=== PATIENT | male | born 1950 | race Caucasian/White ===

== ENCOUNTER → 2017-03-23 | Outpatient (CLI) | payer OTHER ==
[~2017-03-23] MED LIST: ANTICRE6 PO; CIPR-255 PO; CIPR1TAB11 PO; CLR/5 PO; DUTA0.5C PO; MISC1CAP60 PO; MISCCAP63 PO; NITR-5 PO; NXM/40 PO; OXYBUTYNIN PO; OXYC-57 PO; PHEN-876 PO; PRLSR20 PO; PROBIOTIC PO; PROSTAVAN PO; TAMS0.4C38 PO
[2017-03-23 12:30] LABS: % FREE PSA 29.7 %; FREE PSA 2.25 ng/ml; PROSTATE SPECIFIC ANTIGEN 7.57 ng/ml (0.000-4.000)
== END | disposition home or self-care (01) ==
LOC: C.LAB1850 09:35
PROVIDERS: ATTEND Urology
DX: N40.1 Benign prostatic hyperplasia with lower urinary tract symptoms (principal)

== ENCOUNTER → 2017-05-25 | Outpatient (CLI) | payer OTHER ==
[2017-05-25 12:47] LABS: BASO % 0.6 %; BASO ABS # 0.05 K/uL (0-0.2); COMPLETE YES; HEMATOCRIT 50.4 % (42-52); IG% 0.2 %; LYMPH % 30.5 %; LYMPH ABS # 2.67 K/uL (1.2-3.4); MEAN CELL VOLUME 93.2 fL (80-100); MEAN CORPUSCULAR HEMOGLOBIN 32.7 pg (25-34); MEAN CORPUSCULAR HGB CONC 35.1 g/dl (32-36); MEAN PLATELET VOLUME 10.5 fL (7.4-10.4); MONO % 13.2 %; NEUT % 54.5 %; PLATELET COUNT 141 K/uL (130-400); RED BLOOD COUNT 5.41 M/uL (4.7-6.1); WHITE BLOOD COUNT 8.76 K/uL (4.8-10.8)
[2017-05-25 12:54] LABS: PROTHROMBIN TIME (PATIENT) 10.7 SECONDS (9.0-12.0)
[2017-05-25 13:20] LABS: ESTIMATED AVERAGE GLUCOSE 103 mg/dl; HA1C FLAG Normal (Normal)
[2017-05-25 13:59] LABS: ALT/SGPT 51 U/L (12-78); AST/SGOT 49 U/L (15-37); BLOOD UREA NITROGEN 15 mg/dl (7-18); BUN/CREATININE RATIO 14.6 (10-20); CALCIUM 9.8 mg/dl (8.5-10.1); CARBON DIOXIDE 25 mmol/L (21-32); CHLORIDE 105 mmol/L (98-107); CHOLESTEROL 208 mg/dl (0-200); CREATININE 0.99 mg/dl (0.60-1.40); GLUCOSE 103 mg/dl (70-99); POTASSIUM 3.9 mmol/L (3.5-5.1); SODIUM 139 mmol/L (136-145); TRIGLYCERIDES 171 mg/dl (0-150); URIC ACID 4.5 mg/dl (2.6-7.2); VERY LOW DENSITY LIPOPROT CALC 34 mg/dl
[2017-05-25 14:19] LABS: ALB/GLOB RATIO 0.8 (0.9-2); ALKALINE PHOSPHATASE 181 U/L (45-117); CHOLESTEROL/HDL RATIO 5.3; HDL CHOLESTEROL 39 mg/dl; LDL CHOLESTEROL CALCULATED 135 mg/dl
[2017-06-01 12:17] LABS: ANTI-CENTROMERE AB <1.0 NEG AI (<1.0 NEG); ANTI-SS-A <1.0 NEG AI (<1.0 NEG); ANTI-SS-B <1.0 NEG AI (<1.0 NEG); DNA ds CRITHIDIA NEGATIVE (NEGATIVE); LIVER FIBR APOLIPOPROTEIN A-1 140 mg/dL (94-176); LIVER FIBROS ALPHA-2-MACROGLOB 519 mg/dL (106-279); LIVER FIBROSIS GGT 243 U/L (3-70); MICROSOMAL AB <1 IU/ML (<9); NECROINFLAMMATION ACT GRADE A1-A2; NECROINFLAMMATION ACT SCORE 0.36; Sm Antibody <1.0 NEG AI (<1.0 NEG); URCREATININE 95.2 MG/DL (>/= 20)
== END | disposition home or self-care (01) ==
LOC: C.LABBFT 09:53
PROVIDERS: ATTEND Internal Medicine
DX: N40.1 Benign prostatic hyperplasia with lower urinary tract symptoms (principal); B19.20 Unspecified viral hepatitis C without hepatic coma; E78.5 Hyperlipidemia, unspecified

== ENCOUNTER → 2017-06-08 | Outpatient (CLI) | payer OTHER ==
[~2017-06-08] MED LIST changes: -ANTICRE6 PO; -CIPR1TAB11 PO; -DUTA0.5C PO; -NITR-5 PO; -OXYBUTYNIN PO; -OXYC-57 PO; -PHEN-876 PO; -PRLSR20 PO; -PROBIOTIC PO; -PROSTAVAN PO; -TAMS0.4C38 PO
[2017-06-11 03:53] LABS: HEPATITIS C VIRAL RNA(LOG) PCR 5.77 LOG IU/ML (<1.18)
== END | disposition home or self-care (01) ==
LOC: C.LAB1850 14:42
PROVIDERS: ATTEND Internal Medicine Infectious Disease
DX: B18.2 Chronic viral hepatitis C (principal)

== ENCOUNTER → 2017-06-08 | Outpatient (CLI) | payer OTHER ==
[2017-06-11 08:18] LABS: ALBUMIN % 63.46 %; ALPHA-2-GLOBULIN % 8.13 %; BETA GLOBULIN % 14.38 %; CREATININE UR 62 MG/DL (20-370); HEPATITIS C VIRAL RNA BY PCR 641000 IU/ML (<15); HEPATITIS C VIRAL RNA(LOG) PCR 5.81 LOG IU/ML (<1.18)
== END | disposition home or self-care (01) ==
LOC: C.LABBFT 12:14
PROVIDERS: ATTEND Internal Medicine
DX: R77.1 Abnormality of globulin (principal); B19.20 Unspecified viral hepatitis C without hepatic coma

== ENCOUNTER → 2017-06-15 | Outpatient (CLI) | payer OTHER | END | disposition home or self-care (01) | LOC: C.LAB1850 10:47 | PROVIDERS: ATTEND Internal Medicine | DX: R77.1 Abnormality of globulin (principal) ==

== ENCOUNTER → 2017-08-10 | Outpatient (CLI) | payer OTHER ==
[~2017-08-10] MED LIST changes: +PRLSR20 PO; +TAMS0.4C38 PO
[2017-08-10 09:55] LABS: BASO % 0.7 %; BASO ABS # 0.05 K/uL (0-0.2); COMPLETE YES; EOS % 2.6 %; IG% 0.3 %; LYMPH % 31.1 %; LYMPH ABS # 2.16 K/uL (1.2-3.4); MEAN CELL VOLUME 91.6 fL (80-100); MEAN CORPUSCULAR HEMOGLOBIN 32.9 pg (25-34); MEAN CORPUSCULAR HGB CONC 35.9 g/dl (32-36); MEAN PLATELET VOLUME 9.9 fL (7.4-10.4); MONO % 14.4 %; NEUT % 50.9 %; PLATELET COUNT 141 K/uL (130-400); RED BLOOD COUNT 5.02 M/uL (4.7-6.1); WHITE BLOOD COUNT 6.95 K/uL (4.8-10.8)
[2017-08-10 10:18] LABS: ALT/SGPT 21 U/L (12-78); BLOOD UREA NITROGEN 21 mg/dl (7-18); BUN/CREATININE RATIO 20.6 (10-20); CALCIUM 10.5 mg/dl (8.5-10.1); CARBON DIOXIDE 29 mmol/L (21-32); CHLORIDE 102 mmol/L (98-107); GLUCOSE 94 mg/dl (70-99); POTASSIUM 4.1 mmol/L (3.5-5.1); SODIUM 137 mmol/L (136-145)
[2017-08-10 10:21] LABS: ALB/GLOB RATIO 0.9 (0.9-2); ALKALINE PHOSPHATASE 126 U/L (45-117); AST/SGOT 20 U/L (15-37)
[2017-08-13 01:06] LABS: HEPATITIS C VIRAL RNA BY PCR <15 NOT DETECTED IU/ML (<15); HEPATITIS C VIRAL RNA(LOG) PCR <1.18 NOT DETECTED LOG IU/ML (<1.18)
== END | disposition home or self-care (01) ==
LOC: C.LAB1850 09:00
PROVIDERS: ATTEND Internal Medicine Infectious Disease
DX: B19.20 Unspecified viral hepatitis C without hepatic coma (principal)

== ENCOUNTER → 2017-08-31 | Outpatient (CLI) | payer OTHER ==
[~2017-08-31] MED LIST changes: -PRLSR20 PO; -TAMS0.4C38 PO
[2017-09-02 03:00] LABS: HEPATITIS C VIRAL RNA BY PCR <15 NOT DETECTED IU/ML (<15); HEPATITIS C VIRAL RNA(LOG) PCR <1.18 NOT DETECTED LOG IU/ML (<1.18)
== END | disposition home or self-care (01) ==
LOC: C.LAB1850 09:28
PROVIDERS: ATTEND Internal Medicine Infectious Disease
DX: B19.20 Unspecified viral hepatitis C without hepatic coma (principal)

== ENCOUNTER 2017-09-14 08:03 | Emergency (ER) | payer OTHER ==
[2017-09-14 08:05] VITALS: TEMP 36.5; Ht 177.8 cm
[2017-09-14] MEDS ORDERED: TAMS0.4C38 PO (08:26)
[2017-09-14] MEDS ORDERED: PRLSR20 PO (08:26)
[2017-09-14 09:22] LABS: URINE APPEARANCE CLEAR (CLEAR); URINE BILIRUBIN NEG (NEG); URINE COLOR YELLOW; URINE NITRITE NEG (NEG); URINE SPECIFIC GRAVITY 1.013 (1.000-1.030); UROBILINOGEN NEG (NEG)
[2017-09-14 09:25] LABS: MANUAL MICROSCOPIC REQUIRED? NO; REVIEW REQ? NO
[2017-09-14 09:44] VITALS: BP 133/87; PULSE 71; O2SAT 95
--- NOTE | 2017-09-14 13:14 | EMERGENCY ROOM VISIT NOTE ---
History First contact with patient: 08:11 Chief Complaint: UNABLE TO VOID Stated Complaint: UNABLE TO VOID Nursing Triage Summary: patient unable to void since 4 am. I have needed a michael in the past for similar issues History of Present Illness The patient is a 67 year old male who presents to the Emergency Room with complaints of suprapubic abdominal pain and inability to urinate for the past 4 hours. The patient has a history of enlarged prostate and does follow with urology locally. He has not had recent fever or chills. He has had episodes of intermittent urinary retention in the past. This feels similar to those episodes. He has not had fever or chills. He rates his discomfort a 7/10. Review of Systems More than 10 systems were reviewed and otherwise negative with the exception of history of present illness. Past Medical/Surgical History Medical Problems: (1) Calculus Of Kidney (2) Pneumonia (3) Unilat Inguinal Hernia Surgical Problems: (1) History of cholecystectomy Family History FH: heart disease FH: kidney disease Social History Smoking Status: Former Smoker Alcohol Use: none Drug Use: none Marital Status: Housing Status: lives with family Occupation Status: employed Current/Historical Medications Scheduled Misc Natural Products ([employer]), 1 CAP PO DAILY Omeprazole (Prilosec), 20 MG PO DAILY Tamsulosin Hcl (Flomax), 0.4 MG PO DAILY Physical Exam Vital Signs Date Time Temp Pulse Resp B/P (MAP) Pulse Ox O2 Delivery O2 Flow Rate FiO2 09/14/17 09:44 71 20 133/87 95 09/14/17 08:05 36.5 110 24 173/107 96 Room Air Physical Exam VITALS: Vitals are noted on the nurse's note and reviewed by myself. Vital signs stable. GENERAL: Well-developed, well-nourished, white male who is pacing in the emergency department room secondary to his discomfort. He is uncomfortable appearing but overall cooperative. HEART: Regular rate and rhythm without murmurs gallops or rubs. LUNGS: Clear to auscultation bilaterally without wheezes, rales or rhonchi. No retractions or accessory muscle use. ABDOMEN: Positive normal bowel sounds x 4. Soft with suprapubic tenderness. No CVA tenderness. No guarding or rebound tenderness. MUSCULOSKELETAL: No muscle atrophy, erythema, or edema noted. Full range of motion without joint tenderness in all extremities. Medical Decision & Procedures Laboratory Results Test 09/14/17 08:25 Urine Color YELLOW Urine Appearance CLEAR (CLEAR) Urine pH 5.0 (4.5-7.5) Urine Specific [place] 1.013 (1.000-1.030) Urine Protein NEG (NEG) Urine Glucose (UA) NEG (NEG) Urine Ketones NEG (NEG) Urine Occult Blood NEG (NEG) Urine Nitrite NEG (NEG) Urine Bilirubin NEG (NEG) Urine Urobilinogen NEG (NEG) Urine Leukocyte Esterase NEG (NEG) ED Course Physical exam and history were performed. Nursing notes, EMR, and Medication List were personally reviewed. Patient appears to have suprapubic tenderness and urinary retention symptoms for the past 4 hours. On examination the patient appears uncomfortable. A Michael catheter was placed by staff, and greater than 700 ML's of urine was drained over the course of about one hour. This essentially completely resolved the patient's discomfort. The urine is without obvious signs of infection, and the patient does not appear to need antibiotics unless his culture returns positive. Evidently the patient does follow with urology and has had intermittent symptoms of urinary retention in the past. We will leave the Michael in place until otherwise instructed by urology. The patient is to contact them later this morning to help arrange follow-up. The patient was pleased with this plan and voiced understanding. He rated his discomfort a 1/10 at the time of departure. The chart was completed utilizing [employer] Speech Voice Recognition Software. Grammatical errors, random word insertions, pronoun errors, and incomplete sentences are an occasional consequence of this system due to software limitations, ambient noise, and hardware issues. Any formal questions or concerns about the content, text, or information contained within the body of this dictation should be directly addressed to the provider for clarification. . Medical Decision Differential diagnosis: Etiologies such as renal colic, appendicitis, diverticulitis, mesenteric ischemia, aortic pathology, infections, inflammatory bowel disease, PUD, biliary pathology, UTI, as well as others were entertained. Medication Reconcilliation Current Medication List: was personally reviewed by me Blood Pressure Screening Blood pressure disposition: Elevated BP felt to be situational Impression Primary Impression: Urinary retention Departure Information Dispostion Home / Self-Care Condition GOOD Referrals Jitendra Moscoso MD Forms HOME CARE DOCUMENTATION FORM, IMPORTANT VISIT INFORMATION Patient Instructions My [facility] Additional Instructions You were seen and evaluated today on an emergency basis only. This is not a substitute for, or an effort to provide, complete comprehensive medical care. It is not possible to recognize and treat all injuries or illnesses in a single emergency department visit. For this reason it is recommended that you followup with urology, Dr. Moscoso' s office, by telephone in the morning to arrange appropriate follow-up. You are welcome to return to the emergency department anytime with new, worsening, or concerning symptoms.
== END 2017-09-14 09:40 | disposition home or self-care (01) ==
LOC: C.EDB 08:05
DX: R33.9 Retention of urine, unspecified (principal); Z87.01 Personal history of pneumonia (recurrent); Z87.442 Personal history of urinary calculi; Z90.49 Acquired absence of other specified parts of digestive tract; Z87.891 Personal history of nicotine dependence; N40.0 Benign prostatic hyperplasia without lower urinary tract symptoms; Z79.899 Other long term (current) drug therapy

== ENCOUNTER → 2017-10-16 | Outpatient (CLI) | payer OTHER ==
[~2017-10-16] MED LIST changes: -CIPR-255 PO; -CLR/5 PO; -MISC1CAP60 PO; -NXM/40 PO; +PRLSR20 PO; +TAMS0.4C38 PO
[2017-10-16 16:24] LABS: URINE APPEARANCE CLEAR (CLEAR); URINE BILIRUBIN NEG (NEG); URINE COLOR YELLOW; URINE EPITHELIAL CELL AUTO 0-5 /lpf (0-5); URINE NITRITE POS (NEG); URINE PH 5.5 (4.5-7.5); URINE SPECIFIC GRAVITY 1.018 (1.000-1.030); UROBILINOGEN NEG (NEG)
[2017-10-16 16:30] LABS: MANUAL MICROSCOPIC REQUIRED? NO; REVIEW REQ? YES
== END | disposition home or self-care (01) ==
LOC: C.LABSPEC 15:29
PROVIDERS: ATTEND Urology
DX: N40.1 Benign prostatic hyperplasia with lower urinary tract symptoms (principal)

== ENCOUNTER 2017-11-05 07:55 | Day surgery (SDC) | payer OTHER ==
--- NOTE | 2017-10-20 09:28 | PAT Medication Instructions ---
Service Date Oct 20, 2017. Current Home Medication List Ciprofloxacin Tab (Cipro), 500 MG PO BID Dutasteride (Avodart), 0.5 MG PO QAM Omeprazole (Prilosec), 20 MG PO QAM Tamsulosin Hcl (Flomax), 0.4 MG PO QPM [Oxybutynin], 5 MG PO TID [Probiotic], 1 TAB PO BID [Prostavan], 1 TAB PO QAM Medication Instructions For Your Scheduled Surgery - Hold the following medications 2 weeks prior to surgery (stop taking 10/22): [Prostavan], 1 TAB PO QAM - Hold the following medications the morning of surgery: [Probiotic], 1 TAB PO BID - Take the following medications the morning of surgery with a sip of water: Dutasteride (Avodart), 0.5 MG PO QAM Omeprazole (Prilosec), 20 MG PO QAM Ciprofloxacin Tab (Cipro), 500 MG PO BID [Oxybutynin], 5 MG PO TID - Take the following medications as scheduled the night before surgery: [Probiotic], 1 TAB PO BID Ciprofloxacin Tab (Cipro), 500 MG PO BID Tamsulosin Hcl (Flomax), 0.4 MG PO QPM [Oxybutynin], 5 MG PO TID If you have any questions please call us at [phone] or [phone] or [phone]
[2017-10-20 10:09] LABS: BASO % 0.4 %; BASO ABS # 0.05 K/uL (0-0.2); COMPLETE YES; HEMATOCRIT 47.1 % (42-52); IG% 0.3 %; MEAN CELL VOLUME 90.4 fL (80-100); MEAN CORPUSCULAR HEMOGLOBIN 32.4 pg (25-34); MEAN CORPUSCULAR HGB CONC 35.9 g/dl (32-36); MEAN PLATELET VOLUME 9.7 fL (7.4-10.4); MONO % 11.3 %; PLATELET COUNT 208 K/uL (130-400); RED BLOOD COUNT 5.21 M/uL (4.7-6.1); WHITE BLOOD COUNT 11.53 K/uL (4.8-10.8)
--- NOTE | 2017-10-20 10:17 | DIAGNOSTIC IMAGING REPORT ---
CHEST 2 VIEWS ROUTINE HISTORY: Preop. COMPARISON: None. FINDINGS: The lungs are clear. Cardiac silhouette is normal in size. No pleural effusions. No pneumothorax. IMPRESSION: No acute process. Electronically signed by: Chuck See M.D. 10/20/2017 10:16 AM Dictated Date/Time: 10/20/2017 10:14 AM
[2017-10-20 10:19] LABS: BUN/CREATININE RATIO 12.1 (10-20); CALCIUM 10.6 mg/dl (8.5-10.1); CREATININE 1.12 mg/dl (0.60-1.40); POTASSIUM 4.7 mmol/L (3.5-5.1)
[~2017-11-05] VITALS: Ht 177.8 cm; Wt 95.9 kg
[~2017-11-05 07:55] MED LIST changes: +CIPR1TAB11 PO; +CIPROFLOXACIN / D5W 400 MG IV SCH; +DUTA0.5C PO; +LACTATED RINGER'S 1000ML 1,000 ML IV SCH; -MISCCAP63 PO; +OXYBUTYNIN PO; +PROBIOTIC PO; +PROSTAVAN PO
[2017-11-05] MEDS ORDERED: CEFOXITIN SOD 1 GM VIAL ONE ×2 (08:29→08:38)
[2017-11-05] MEDS ORDERED: MIDAZOLAM HCL 1 MG/ML 2ML VIAL ONE (08:51)
[2017-11-05] MEDS ORDERED: FENTANYL CITRATE INJ 50 MCG/1 ML 2 ML VIAL ONE ×2 (08:51→10:11)
[2017-11-05] MEDS ORDERED: PROPOFOL IV EMULSION 10 MG/ML 20 ML VIAL IV ONE ×2 (08:52→10:14)
[2017-11-05] MEDS ORDERED: ONDANSETRON INJ 2 MG/ML 2 ML VIAL ONE (08:52)
[2017-11-05] MEDS ORDERED: LIDOCAINE HCL 2% 2 ML VIAL (20MG/ML) ONE (08:52)
[2017-11-05] MEDS ORDERED: ATROPINE SULFATE 0.1 MG/ML 5ML SYR IV PRN (09:00)
[2017-11-05] MEDS ORDERED: EpHEDrine SULFATE INJ 50 MG/ML AMP IV PRN (09:00)
[2017-11-05] MEDS ORDERED: FENTANYL CITRATE INJ 50 MCG/1 ML 2 ML VIAL IV PRN (09:00)
[2017-11-05 09:01] VITALS: BP 141/92; PULSE 85; TEMP 36.8; O2SAT 93; Ht 177.8 cm; Wt 95.9 kg
--- NOTE | 2017-11-05 09:37 | History & Physical Bridge Note ---
H&P Re-Evaluation Bridge Note: I have examined the patient, reviewed the History & Physical and in the interval since the performance of the History & Physical I have noted the following changes of clinical significance: No changes noted
[2017-11-05] MEDS ORDERED: NITR-5 PO (11:17)
[2017-11-05] MEDS ORDERED: OXYC-57 PO (11:17)
[2017-11-05] MEDS ORDERED: PHEN-876 PO (11:17)
--- NOTE | 2017-11-05 11:18 | Discharge Instructions ---
Discharge Instructions Date of Service Nov 05, 2017. Visit Reason for Visit: Benign Prostatic Hyperplasia Discharge Discharge Diagnosis / Problem: BPH Discharge Goals Goal(s): Therapeutic intervention Activity Recommendations Activity Limitations: resume your previous activity (take it easy today) Lifting Limitations: gradually increase as tolerated Exercise/Sports Limitations: gradually increase as tolerated May Resume Sexual Activity: after follow-up appointment Shower/Bathe: no limitations Driving or Machine Use: resume 1 day after discharge Anesthesia . Post Anesthesia Instructions: If you have had General Anesthesia or IV Sedation: * Do not drive today. * Resume driving when surgeon permits. * Do not make important decisions or sign legal documents today. * Call surgeon for: 1. Temperature elevations greater than 101 degrees F. 2. Uncontrollable pain. 3. Excessive bleeding. 4. Persistent nausea and vomiting. 5. Medication intolerance (nausea, vomiting or rash). * For nausea and vomiting use only clear liquids such as: tea, soda, bouillon until nausea subsides, then gradually increase diet as tolerated. * If you have any concerns or questions, call your surgeon's office. If physician is unavailable and it is an emergency, call 911 or go to the nearest emergency room. . Diet Recommendations Recommended Home Diet: resume previous diet Procedures Procedures Performed: Button Transurethral Resection Prostate, Laser Cystolithopaxy Pending Studies Studies pending at discharge: no Medical Emergencies . Who to Call and When: Medical Emergencies: If at any time you feel your situation is an emergency, please call 911 immediately. . Non-Emergent Contact Non-Emergency issues call your: Urologist Call Non-Emergent contact if: temperature is above 101.5, your pain is not controlled . . "Provider Documentation" section prepared by Jitendra Moscoso. . [place] Drug Monitoring Program Search Results: patient reviewed within database
[2017-11-05] MEDS ORDERED: PHENAZOPYRIDINE HCL 200 MG TAB PO PRN (11:30)
[2017-11-05] MEDS ORDERED: OXYCODONE/ACETAMINOPHEN 5-325 TAB PO PRN (11:30)
--- NOTE | 2017-11-05 11:41 | [facility] Operative Report ---
Operative Report Operative Date Nov 05, 2017. Pre-Operative Diagnosis Benign prostatic hyperplasia with urinary obstruction and other lower urinary tract symptoms Post-Operative Diagnosis Benign prostatic hyperplasia with urinary obstruction and other lower urinary tract symptoms, bladder stone Procedure(s) Performed Button Transurethral Resection Prostate, Laser Cystolithopaxy Surgeon Dr. Jitendra Moscoso Cellophane Worker Surgeon(s) None Estimated Blood Loss 5 mL Findings Cystoscopic exam really normal anterior urethra prostatic fossa was obstructed with primarily kissing lateral lobes bladder showed one trabeculation there were several bladder stones which were small in the bladder Specimens No pathology specimens per surgeon Drains 20 Irish Ford catheter in the bladder Anesthesia Gen. Complication(s) None Disposition Recovery Room / PACU Indications Patient is a 67-year-old white male with recurrent bouts of urinary retention was failed medical therapy he is being brought in now for button TURP Description of Procedure After the induction of an adequate general anesthetic and appropriate timeout patient was placed in the dorsal lithotomy position. Lower abdomen and genitalia were prepped with Hibiclens and draped in a sterile fashion. Next using a 22 Irish cystoscope routine cystoscopic exam was performed the above- noted findings with 30 and 70 lenses. Next a 24 Irish resectoscope and laser bridge were inserted and using a holmium laser the bladder stones were fragmented into multiple small pieces which were then evacuated from the bladder with an Say2me evacuator. Next the button loop was used to vaporize the prostate from the bladder neck to the verumontanum from 1:00 to 6:00 clockwise clinical 6:00 counterclockwise distributed between 11 and 1 was left untouched to help prevent bladder neck contractions. Barton knife was then used to incise the bladder neck at 5 and 7:00. Any bleeding points were then electrocoagulated. Prostatic fossa and bladder were then reinspected there were no obvious bleeding points there were no tissue fragments in the bladder. Patient's bladder was filled he voided with a good stream on Cred maneuver. 20 Irish Ford catheter inserted per urethra to gravity drainage. All needle sponge and some counts are correct at the end of the case. Patient tolerated the procedure was covered in stable condition I attest to the content of the Intraoperative Record and any orders documented therein. Any exceptions are noted below.
[2017-11-05 12:00] VITALS: BP 135/84; PULSE 61; TEMP 36.3; O2SAT 92
[2017-11-05 12:30] VITALS: BP 115/70; PULSE 75; O2SAT 100
[2017-11-05 13:00] VITALS: BP 144/89; PULSE 61; O2SAT 97
[2017-11-05 13:33] VITALS: BP 121/83; PULSE 66; TEMP 36.4; O2SAT 97
--- NOTE | 2017-11-05 13:34 | Anesthesiology Progress Note ---
Anesthesia Post Op Note Date & Time Nov 05, 2017 at 13:34 Vital Signs Pain Intensity: 0 Vital Signs Past 12 Hours Date Time Temp Pulse Resp B/P (MAP) Pulse Ox O2 Delivery O2 Flow Rate FiO2 11/05/17 13:00 61 18 144/89 97 Room Air 11/05/17 12:30 75 18 115/70 100 Room Air 11/05/17 12:00 36.3 61 18 135/84 92 Room Air 11/05/17 11:52 61 14 11/05/17 11:52 61 14 92 11/05/17 11:51 59 17 11/05/17 11:51 60 17 93 11/05/17 11:50 113/78 11/05/17 11:46 61 19 11/05/17 11:46 60 19 92 11/05/17 11:45 108/80 11/05/17 11:42 65 15 11/05/17 11:42 63 15 93 11/05/17 11:40 119/81 11/05/17 11:39 36.2 64 16 108/80 94 Room Air Oxymask 11/05/17 11:37 61 13 93 11/05/17 11:37 63 13 11/05/17 11:36 68 14 11/05/17 11:36 68 14 94 11/05/17 11:35 117/76 11/05/17 11:31 67 12 11/05/17 11:31 66 12 96 11/05/17 11:30 119/87 11/05/17 11:26 65 12 94 11/05/17 11:26 66 12 11/05/17 11:25 68 14 106/80 95 11/05/17 11:25 67 14 11/05/17 11:20 60 13 11/05/17 11:20 60 13 122/78 94 11/05/17 11:15 36.0 61 16 110/82 94 Oxymask 10 11/05/17 11:15 66 14 110/82 93 11/05/17 11:15 67 14 11/05/17 09:01 36.8 85 16 141/92 (108) 93 Room Air Notes Mental Status: alert / awake / arousable, participated in evaluation Pt Amnestic to Procedure: Yes Nausea / Vomiting: adequately controlled Pain: adequately controlled Airway Patency, RR, SpO2: stable & adequate BP & HR: stable & adequate Hydration State: stable & adequate Anesthetic Complications: no major complications apparent
== END 2017-11-05 14:10 | disposition home or self-care (01) ==
LOC: C.ACU 07:55
PROVIDERS: ATTEND Urology
DX: N40.1 Benign prostatic hyperplasia with lower urinary tract symptoms (principal); N13.8 Other obstructive and reflux uropathy; N21.0 Calculus in bladder; E78.5 Hyperlipidemia, unspecified; Z90.89 Acquired absence of other organs; Z98.52 Vasectomy status; Z87.891 Personal history of nicotine dependence; Z79.899 Other long term (current) drug therapy; E66.9 Obesity, unspecified; Z68.30 Body mass index [BMI] 30.0-30.9, adult; Z86.19 Personal history of other infectious and parasitic diseases; Z84.1 Family history of disorders of kidney and ureter; Z80.42 Family history of malignant neoplasm of prostate

== ENCOUNTER → 2017-11-16 | Outpatient (CLI) | payer OTHER ==
[~2017-11-16] MED LIST changes: -CIPROFLOXACIN / D5W 400 MG IV SCH; -LACTATED RINGER'S 1000ML 1,000 ML IV SCH; +NITR-5 PO; +OXYC-57 PO; +PHEN-876 PO
[2017-11-16 17:57] LABS: BASO % 0.9 %; BASO ABS # 0.07 K/uL (0-0.2); COMPLETE YES; EOS % 2.3 %; HEMATOCRIT 42.1 % (42-52); IG% 0.3 %; LYMPH % 35.7 %; LYMPH ABS # 2.81 K/uL (1.2-3.4); MEAN CELL VOLUME 90.9 fL (80-100); MEAN CORPUSCULAR HEMOGLOBIN 31.5 pg (25-34); MEAN CORPUSCULAR HGB CONC 34.7 g/dl (32-36); MEAN PLATELET VOLUME 9.6 fL (7.4-10.4); MONO % 12.2 %; NEUT % 48.6 %; PLATELET COUNT 210 K/uL (130-400); RED BLOOD COUNT 4.63 M/uL (4.7-6.1); WHITE BLOOD COUNT 7.87 K/uL (4.8-10.8)
[2017-11-16 18:21] LABS: ALT/SGPT 31 U/L (12-78); BLOOD UREA NITROGEN 14 mg/dl (7-18); BUN/CREATININE RATIO 13.7 (10-20); CALCIUM 9.6 mg/dl (8.5-10.1); CARBON DIOXIDE 30 mmol/L (21-32); CHLORIDE 103 mmol/L (98-107); CREATININE 1.01 mg/dl (0.60-1.40); GLUCOSE 80 mg/dl (70-99); POTASSIUM 3.8 mmol/L (3.5-5.1); SODIUM 138 mmol/L (136-145)
[2017-11-16 18:32] LABS: ALB/GLOB RATIO 0.8 (0.9-2); ALKALINE PHOSPHATASE 171 U/L (45-117); AST/SGOT 26 U/L (15-37)
== END | disposition home or self-care (01) ==
LOC: C.LABBFT 15:37
PROVIDERS: ATTEND Internal Medicine
DX: E83.52 Hypercalcemia (principal)

== ENCOUNTER → 2017-11-19 | Outpatient (CLI) | payer OTHER ==
[2017-11-25 07:48] LABS: ALBUMIN 4.1 G/DL (3.8-4.8); ALPHA-2-GLOBULIN % 11.21 %; BETA GLOBULIN % 16.22 %; CREATININE UR 67 MG/DL (20-370); GAMMA GLOBULIN 1.2 G/DL (0.8-1.7); GAMMA GLOBULIN % 15.87 %; TOTAL PROTEIN 7.6 G/DL (6.2-8.3)
== END | disposition home or self-care (01) ==
LOC: C.LAB1850 15:01
PROVIDERS: ATTEND Internal Medicine
DX: R32 Unspecified urinary incontinence (principal); E83.52 Hypercalcemia

== ENCOUNTER → 2017-12-26 | Outpatient (CLI) | payer OTHER | END | disposition home or self-care (01) | LOC: C.LABSPEC 13:29 | PROVIDERS: ATTEND Family Medicine | DX: R30.0 Dysuria (principal) ==

== ENCOUNTER → 2018-01-23 | Outpatient (CLI) | payer OTHER | END | disposition home or self-care (01) | LOC: C.LAB1850 09:27 | PROVIDERS: ATTEND Urology | DX: N39.0 Urinary tract infection, site not specified (principal) ==

== ENCOUNTER → 2018-03-02 | Outpatient (CLI) | payer OTHER ==
--- NOTE | 2018-03-02 14:49 | DIAGNOSTIC IMAGING REPORT ---
KUB CLINICAL HISTORY: N20.0 NEPHROLITHIASIS. LEFT-SIDED PAIN. COMPARISON STUDY: August 2011 FINDINGS: Pelvic basin calcifications, are likely prostatic. There is no pathologic bowel dilatation. There are faint calcifications project over each renal shadow, likely representing renal calculi. The largest on the left measures 3 mm. The largest on the right measures 3 mm. There are no calcifications suspicious for ureteral calculi. IMPRESSION: Bilateral nephrolithiasis. Electronically signed by: Josue Barahona M.D. 03/02/2018 2:48 PM Dictated Date/Time: 03/02/2018 2:46 PM
== END | disposition home or self-care (01) ==
LOC: C.RAD1850 14:28
PROVIDERS: ATTEND Nurse Practitioner Adult Health
DX: N20.0 Calculus of kidney (principal)

== ENCOUNTER → 2018-03-29 | Outpatient (CLI) | payer OTHER ==
[2018-03-29 17:04] LABS: ALBUMIN 3.8 gm/dl (3.4-5.0); ALT/SGPT 27 U/L (12-78); AST/SGOT 19 U/L (15-37); BLOOD UREA NITROGEN 19 mg/dl (7-18); CARBON DIOXIDE 29 mmol/L (21-32); GLUCOSE 90 mg/dl (70-99); SODIUM 137 mmol/L (136-145)
[2018-03-29 17:05] LABS: CHOLESTEROL 151 mg/dl (0-200)
[2018-03-29 17:07] LABS: ALKALINE PHOSPHATASE 160 U/L (45-117); CALCIUM 10.6 mg/dl (8.5-10.1); LDL CHOLESTEROL CALCULATED 87 mg/dl; TOTAL PROTEIN 8.6 gm/dl (6.4-8.2)
== END | disposition home or self-care (01) ==
LOC: C.LABBFT 12:04
PROVIDERS: ATTEND Physician Assistant Medical
DX: N40.1 Benign prostatic hyperplasia with lower urinary tract symptoms (principal); E78.5 Hyperlipidemia, unspecified

== ENCOUNTER → 2018-04-05 | Outpatient (CLI) | payer OTHER | END | disposition home or self-care (01) | LOC: C.LABSPEC 10:07 | PROVIDERS: ATTEND Urology | DX: N39.0 Urinary tract infection, site not specified (principal) ==

== ENCOUNTER → 2018-07-19 | Day surgery (SDC) | payer OTHER ==
[~2018-07-19] VITALS: Ht 177.8 cm; Wt 95.5 kg
[~2018-07-19] MED LIST changes: +ATOR10TA82 PO; -CIPR1TAB11 PO; +HYDR-5688 PO; +LIDOCAINE HCL 2% 2 ML VIAL (20MG/ML) ONE; +MONT1TAB3 PO; -NITR-5 PO; +ONDANSETRON INJ 2 MG/ML 2 ML VIAL IV PRN; -OXYBUTYNIN PO; -OXYC-57 PO; -PHEN-876 PO; -PROBIOTIC PO; +PROPOFOL IV EMULSION 10 MG/ML 20 ML VIAL ONE; -PROSTAVAN PO
[2018-07-19 08:19] VITALS: Ht 177.8 cm; Wt 95.5 kg
--- NOTE | 2018-07-19 08:24 | Endo History and Physical ---
History & Physical Date of Service: Jul 19, 2018. Chief Complaint: Colon polyp surveillance Referring Physician: History of Present Illness The patient presents for a follow-up colonoscopy today. His last examination was several years ago and notable for several polyps. Due to a limited bowel prep we had the patient repeat his examination in 3 years. He underwent a 2- day prep today. Past Surgical History Hx Cardiac Surgery: No Hx Internal Defibrillator: No Hx Pacemaker: No Hx Abdominal Surgery: Yes (HERNIA) Hx of Implantable Prosthesis: No Hx Post-Op Nausea and Vomiting: No Hx Cancer Surgery: No Hx Thoracic Surgery: No Hx Orthopedic: No Hx Urinary Tract Surgery: Yes (VASECTOMY, TURP W LASER CYSTOLITHOPAXY) Family History None Social History Smoking Status: Former Smoker Hx Substance Use: No (QUIT "HARD" DRUGS-1983) Hx Alcohol Use: No Allergies Coded Allergies: No Known Allergies (Verified , 07/19/18) Current Medications Reported Home Medications Medications Dose Route/Sig Max Daily Dose Days Date Category Dose Instructions [place] 5MG/325MG (Acetaminophen/Hydrocodone Bitart) Tab 1 Tablet PO Q4 PRN 07/13/18 Reported PRN PAIN Singulair (Montelukast Sodium) 10 Mg Tab 10 Mg PO QPM 07/13/18 Reported Lipitor (Atorvastatin Calcium) 10 Mg Tab 10 Mg PO QPM 07/13/18 Reported Avodart (Dutasteride) 0.5 Mg Cap 0.5 Mg PO QAM 10/20/17 Reported Flomax (Tamsulosin Hcl) 0.4 Mg Cap 0.4 Mg PO QPM 09/14/17 Reported Prilosec (Omeprazole) 20 Mg Capcr 20 Mg PO QAM 09/14/17 Reported Vital Signs Weight (Kilograms): 95.45 Height (Feet): 5 Height (Inches): 10 Physical Exam General Appearance: no apparent distress Respiratory/Chest: Auscultation: breath sounds normal Cardiovascular: Heart Auscultation: RRR Abdomen: Inspection & Palpation: soft Assessment and Plan Patient for colon polyp surveillance today. We discussed risks of colonoscopy to include bleeding, infection, perforation, pain and missed colonic polyps.
--- NOTE | 2018-07-19 08:58 | Discharge Instructions ---
Endoscopy Patient Instructions Date / Procedure(s) Performed Jul 19, 2018. Colonoscopy Allergy Information Coded Allergies: No Known Allergies (Verified , 07/19/18) Discharge Date / Findings Jul 19, 2018. Otherwise normal colonoscopy Medication Instructions Reported Home Medications Medications Dose Route/Sig Max Daily Dose Days Date Category Dose Instructions [place] 5MG/325MG (Acetaminophen/Hydrocodone Bitart) Tab 1 Tablet PO Q4 PRN 07/13/18 Reported PRN PAIN Singulair (Montelukast Sodium) 10 Mg Tab 10 Mg PO QPM 07/13/18 Reported Lipitor (Atorvastatin Calcium) 10 Mg Tab 10 Mg PO QPM 07/13/18 Reported Avodart (Dutasteride) 0.5 Mg Cap 0.5 Mg PO QAM 10/20/17 Reported Flomax (Tamsulosin Hcl) 0.4 Mg Cap 0.4 Mg PO QPM 09/14/17 Reported Prilosec (Omeprazole) 20 Mg Capcr 20 Mg PO QAM 09/14/17 Reported Provider Instructions Activity Restrictions - No exercising or heavy lifting for 24 hours. - Do not drink alcohol the day of the procedure. - Do not drive a car or operate machinery until the day after the procedure. - Do not make any important decisions or sign important papers in 24 hours after the procedure. Following Day: - Return to full activity which may include returning to work/school. Diet Start your diet with liquids and light foods (jello, soup, juice, toast). Then eat your usual diet if not nauseated. Treatment For Common After Affects For mild abdominal pain, bloating, or excessive gas: - Rest - Eat lightly - Lie on right side Follow-Up Information Repeat colonoscopy in 5 years Follow-up with gastroenterology as needed Anesthesia Information What You Should Know You have had a procedure that required some medicine to reduce anxiety and discomfort. This treatment is called moderate sedation. After receiving the treatment, you may be sleepy, but you will be able to breathe on your own. The effects of the treatment may last for several hours. Follow these instructions along with Activity/Diet recommendations noted above: * Do NOT do anything where dizziness or clumsiness would be dangerous. * Rest quietly at home today, then you can be up and about tomorrow. * Have a responsible person stay with you the rest of today. * You may have had an I.V. today. If so, you may take the dressing off later today. Recommendations Call your doctor if: * Trouble breathing * Continuous vomiting for more than 24 hours * Temperature above 101 degrees * Severe abdominal pain or bloating * Pain not relieved by pain medicine ordered * There is increased drainage or redness from any incision * A large amount of rectal bleeding greater than 2-3 tablespoons. (If you had a polyp/s removed or have hemorrhoids, a small amount of blood - from the rectum is to be expected.) * You have any unanswered questions or concerns. IN THE EVENT OF A SERIOUS EMERGENCY, GO TO THE NEAREST EMERGENCY ROOM Your discharge instructions were prepared by provider Cecile Arevalo. Patient Instructions Signature Page Jett Delcid Patient (or Guardian) Signature/Date: I have read and understand the instructions given to me by my caregivers. Caregiver/RN/Doctor Signature/Date: The above-named patient and/or guardian has received patient instructions on this date. + Original Patient Signature Page (only) stays with chart. Please make copy for patient.
--- NOTE | 2018-07-19 09:01 | GI REPORT ---
Patient Name: Jett Delcid Procedure Date: 07/19/2018 8:19 AM Date of : 1950 Admit Type: Outpatient Age: 67 Gender: Male Attending MD: Cecile Arevalo DO Procedure: Colonoscopy Providers: Cecile Arevalo DO Referring MD: Ean Feliz Indications: High risk colon cancer surveillance: Personal history of colonic polyps Medicines: Monitored Anesthesia Care Complications: No immediate complications. Estimated blood loss: Minimal. Estimated Blood Loss: Estimated blood loss was minimal. Procedure: Pre-Anesthesia Assessment: - Prior to the procedure, a History and Physical was performed, and patient medications, allergies and sensitivities were reviewed. The patient's tolerance of previous anesthesia was reviewed. - The risks and benefits of the procedure and the sedation options and risks were discussed with the patient. All questions were answered and informed consent was obtained. - Patient identification and proposed procedure were verified prior to the procedure by the physician, the nurse and the metal sheet roller operator. The procedure was verified in the procedure room. - Pre-procedure physical examination revealed no contraindications to sedation. - ASA Grade Assessment: III - A patient with severe systemic disease. - After reviewing the risks and benefits, the patient was deemed in satisfactory condition to undergo the procedure. - The anesthesia plan was to use monitored anesthesia care (MAC). - Immediately prior to administration of medications, the patient was re-assessed for adequacy to receive sedatives. - The heart rate, respiratory rate, oxygen saturations, blood pressure, adequacy of pulmonary ventilation, and response to care were monitored throughout the procedure. - The physical status of the patient was re-assessed after the procedure. After I obtained informed consent, the scope was passed under direct vision. Throughout the procedure, the patient's blood pressure, pulse, and oxygen saturations were monitored continuously. The scope was introduced through the anus and advanced to the terminal ileum. The colonoscopy was performed without difficulty. The patient tolerated the procedure well. The quality of the bowel preparation was good. Findings: The perianal and digital rectal examinations were normal. Pertinent negatives include normal sphincter tone. The terminal ileum appeared normal. Internal hemorrhoids were found during retroflexion. The hemorrhoids were mild. The exam was otherwise without abnormality. Impression: - The examined portion of the ileum was normal. - Internal hemorrhoids. - The examination was otherwise normal. - No specimens collected. Recommendation: - Discharge patient to home (ambulatory). - Advance diet as tolerated today. - Repeat colonoscopy in 5 years for surveillance. - Return to GI office PRN. Cecile Arevalo D.O. Cecile Arevalo, 07/19/2018 9:01:12 AM This report has been signed electronically. Note Initiated On: 07/19/2018 8:19 AM Number of Addenda: 0 I attest to the content of the Intraoperative Record and orders documented therein, exceptions below {[id number]}
--- NOTE | 2018-07-19 09:24 | Anesthesiology Progress Note ---
Anesthesia Post Op Note Date & Time Jul 19, 2018 at 09:24 Vital Signs Pain Intensity: 0 Vital Signs Past 12 Hours Date Time Temp Pulse Resp B/P (MAP) Pulse Ox O2 Delivery O2 Flow Rate FiO2 07/19/18 09:15 83 18 94/78 (83) 96 Room Air 07/19/18 09:00 36.7 83 16 93/76 (82) 96 Room Air 07/19/18 08:31 36.4 69 18 137/93 (108) 96 Room Air Notes Mental Status: alert / awake / arousable, participated in evaluation Pt Amnestic to Procedure: Yes Nausea / Vomiting: adequately controlled Pain: adequately controlled Airway Patency, RR, SpO2: stable & adequate BP & HR: stable & adequate Hydration State: stable & adequate Anesthetic Complications: no major complications apparent
[2018-07-19 09:30] VITALS: BP 124/88; PULSE 83; O2SAT 96
== END | disposition home or self-care (01) ==
LOC: C.GI 07:40
PROVIDERS: ATTEND Internal Medicine Gastroenterology
DX: Z12.11 Encounter for screening for malignant neoplasm of colon (principal); K64.8 Other hemorrhoids; Z86.010 Personal history of colon polyps; N18.9 Chronic kidney disease, unspecified; N40.0 Benign prostatic hyperplasia without lower urinary tract symptoms; Z87.891 Personal history of nicotine dependence; Z79.899 Other long term (current) drug therapy